=== PATIENT | male | born 1935 | race Caucasian/White ===

== ENCOUNTER 2017-08-19 11:17 | Emergency (ER) | payer MEDICARE, OTHER ==
--- NOTE | 2017-08-19 12:32 | RAD ---
PA AND LATERAL VIEWS CHEST: HISTORY: Dyspnea, cough, wheezing. FINDINGS: Comparison is made with the exam of 04/06/2017. There are changes of median sternotomy. The heart is enlarged. No confluent areas of consolidation, pneumothorax, marielle pleural edema, or pleural effusions are seen. There are degenerative changes of the spine. IMPRESSION: No acute process. POS: [facility]
[2017-08-19 12:40] LABS: #Basophils 0.1 thou/uL (0.0-0.2); #Eosinphils 0.8 thou/uL (0.0-0.7); #Lymphocytes 1.5 thou/uL (1.20-3.40); #Monocytes 0.6 thou/uL (0.11-0.59); #Neutrophils 7.2 thou/uL (1.40-6.50); %Basophils 1.1 % (0.0-1.0); %Lymphocytes 14.6 % (21.0-51.0); %Monocytes 5.8 % (0.0-10.0); %Neutrophils 70.5 % (42.0-75.0); Hemoglobin 13.5 g/dL (14.0-18.0); Mean Corpuscular HGB CONC 33.1 g/dL (32.0-36.0); Mean Corpuscular Hemoglobin 29.7 pg (27.0-31.0); Mean Corpuscular Volume 89.5 fl (80.0-94.0); Platelet Count 300 thou/uL (130-400); RBC Distribution Width 11.5 % (11.5-14.5); Red Blood Cell (RBC) Count 4.54 mill/uL (4.70-6.10); White Blood Cell (WBC) Count 10.2 thou/uL (4.8-10.8)
[2017-08-19 12:56] LABS: ALT (SGPT) 24 U/L (8-55); AST (SGOT) 21 U/L (5-34); Alkaline Phosphatase 55 U/L (40-150); Anion Gap 17 mmol/L (10-20); BUN (Urea Nitrogen) 15 mg/dL (8.4-25.7); Bilirubin, Total 0.3 mg/dL (0.2-1.2); CK (CPK) 236 U/L (30-200); Calc. Creatinine Clearance 0 mL/min (70-130); Calcium 9.6 mg/dL (7.8-10.44); Carbon Dioxide 26 mmol/L (23-31); Chloride 100 mmol/L (98-107); Estimated GFR-MDRD 83; Globulin 2.8 g/dL (2.4-3.5); Glucose 126 mg/dL (83-110); Potassium 4.1 mmol/L (3.5-5.1); Protein, Total 6.8 g/dL (5.8-8.1); Sodium 139 mmol/L (136-145)
[2017-08-19 12:57] LABS: CKMB 3.2 ng/mL (0-6.6); Troponin I Less than 0.010 ng/mL (< 0.028)
[2017-08-19] MEDS ORDERED: Water For Inject, Bacteriostat 30 ML ONE (13:04)
[2017-08-19] MEDS ORDERED: methylPREDNISolone Sod Succ/PF 125 MG/2 ML VIAL ONE (13:04)
== END 2017-08-19 13:15 | disposition home or self-care (01) ==
LOC: SCSER 11:17
DX: J20.9 Acute bronchitis, unspecified (principal); I25.10 Atherosclerotic heart disease of native coronary artery without angina pectoris; E11.9 Type 2 diabetes mellitus without complications; E78.5 Hyperlipidemia, unspecified; I10 Essential (primary) hypertension; Z79.82 Long term (current) use of aspirin; Z79.84 Long term (current) use of oral hypoglycemic drugs; Z79.899 Other long term (current) drug therapy; Z79.51 Long term (current) use of inhaled steroids
CPT/HCPCS: 71020; 80053; 82550; 82553; 83880; 84484; 85025; 93005; 94640; J2930; J7620

== ENCOUNTER 2017-09-22 12:07 | Outpatient (CLI) | payer MEDICARE, OTHER ==
[2017-09-22 14:17] LABS: Bilirubin Small (Negative); Blood, Urine Negative (Negative); Clarity CLEAR (Clear); Glucose, Urine (Dipstick) Negative (Negative); Leukocyte Negative (Negative); Nitrite Negative (Negative); Protein, Urine (Dipstick) Negative (Neg-Trace); Specific Gravity, Urine 1.018 (1.002-1.036); Urobilinogen 0.2 mg/dL (0.2-1.0)
[2017-09-22 14:19] LABS: #Eosinphils 0.1 thou/uL (0.0-0.7); #Lymphocytes 1.4 thou/uL (1.20-3.40); #Monocytes 0.7 thou/uL (0.11-0.59); #Neutrophils 6.6 thou/uL (1.40-6.50); %Basophils 0.5 % (0.0-1.0); %Eosinophils 1.6 % (0.0-10.0); %Lymphocytes 16.2 % (21.0-51.0); %Monocytes 7.4 % (0.0-10.0); %Neutrophils 74.3 % (42.0-75.0); Hemoglobin 13.9 g/dL (14.0-18.0); Mean Corpuscular Hemoglobin 29.9 pg (27.0-31.0); Mean Corpuscular Volume 90.8 fl (80.0-94.0); Mean Platelet Volume 7.1 fL (7.4-10.4); Platelet Count 337 thou/uL (130-400); RBC Distribution Width 12.5 % (11.5-14.5); Red Blood Cell (RBC) Count 4.65 mill/uL (4.70-6.10); White Blood Cell (WBC) Count 8.9 thou/uL (4.8-10.8)
[2017-09-22 14:20] LABS: Bacteria/HPF None Seen HPF (None Seen); Hyaline Casts/LPF 4-6 HYALINE CAST LPF (0-3 Hyaline); Squamous Epithelial 0-3 HPF (0-3); WBC/HPF 0-3 HPF (0-3)
--- NOTE | 2017-09-22 14:40 | RAD ---
TWO VIEWS OF THE CHEST: Comparison: 08-19-17 FINDINGS: Two views of the chest shows an enlarged but stable cardiomediastinal silhouette. The patient is stat us post CABG. There is no evidence of consolidation, mass, or pleural effusion. Degenerative changes are seen in the spine. IMPRESSION: No evidence of acute cardiopulmonary disease. POS: [facility]
[2017-09-22 14:54] LABS: Anion Gap 16 mmol/L (10-20); BUN (Urea Nitrogen) 20 mg/dL (8.4-25.7); Calc. Creatinine Clearance 0 mL/min (70-130); Calcium 9.1 mg/dL (7.8-10.44); Carbon Dioxide 27 mmol/L (23-31); Chloride 102 mmol/L (98-107); Estimated GFR-MDRD 65; Glucose 109 mg/dL (83-110); Sodium 141 mmol/L (136-145)
--- NOTE | 2017-11-21 21:51 | EKG ---
Test Reason : Blood Pressure : / mmHG Vent. Rate : 082 BPM Atrial Rate : 082 BPM P-R Int : 174 ms QRS Dur : 142 ms QT Int : 402 ms P-R-T Axes : 024 057 056 degrees QTc Int : 469 ms Normal sinus rhythm Right bundle branch block Abnormal ECG When compared with ECG of 19-AUG-2017 11:56, No significant change was found Confirmed by LOLA HEATH M.D. ([id number]) on 11/21/2017 9:51:01 PM Referred By: LOTTIE Confirmed By:LOLA HEATH M.D.
== END 2017-09-22 12:08 | disposition home or self-care (01) ==
LOC: LABBT 12:07
PROVIDERS: ATTEND Orthopaedic Surgery
DX: Z01.810 Encounter for preprocedural cardiovascular examination (principal); Z01.818 Encounter for other preprocedural examination; M12.811 Other specific arthropathies, not elsewhere classified, right shoulder
CPT/HCPCS: 71046; 80048; 81001; 85025; 85730; 87081; 93005; 93010

== ENCOUNTER 2017-09-22 12:30 | Inpatient (IN) | payer MEDICARE, OTHER ==
[2017-09-22 13:01] VITALS: BMI 34.2
[2017-09-29] MEDS ORDERED: Levofloxacin 500 mg/D5W 100 ml Premix Bag ONE (07:34)
[2017-09-29] MEDS ORDERED: Tranexamic Acid 1,000 MG/100 ML BAG ONE ×2 (07:35→11:30)
[2017-09-29] MEDS ORDERED: Vancomycin HCl 1.5 GM, Admixture Fee 1 EACH in Sodium Chloride 0.9% 250 ML 300 ML IVPB SCH ×2 (07:45→22:00)
[2017-09-29] MEDS ORDERED: Fentanyl 100 MCG/2 ML VIAL ONE (08:50)
[2017-09-29] MEDS ORDERED: Midazolam HCl 2 mg/2 ml Vial ONE (08:50)
[2017-09-29] MEDS ORDERED: Gentamicin 80 MG/2 ML VIAL ONE (08:53)
[2017-09-29] MEDS ORDERED: traMADol HCl 50 MG TAB PO PRN ×2 (09:02)
[2017-09-29] MEDS ORDERED: Promethazine HCl 25 MG/ML VIAL IM PRN ×2 (09:02→11:32)
[2017-09-29] MEDS ORDERED: Zolpidem Tartrate 5 MG TAB PO PRN (09:02)
[2017-09-29] MEDS ORDERED: HYDROcodone/Acetaminophen 10/325 mg Tablet PO PRN ×2 (09:02)
[2017-09-29] MEDS ORDERED: Ondansetron HCl/PF 4 MG/2 ML Vial IVP PRN ×2 (09:02→11:32)
[2017-09-29] MEDS ORDERED: Ketorolac Tromethamine 30 MG/ML VIAL IVP PRN (09:02)
[2017-09-29] MEDS ORDERED: Ropivacaine 0.2% 550 ML 550 ML NERVE BLCK SCH (09:02)
[2017-09-29] MEDS ORDERED: Fentanyl 100 MCG/2 ML VIAL IV PRN (09:03)
[2017-09-29] MEDS ORDERED: HYDROcodone/Acetaminophen 7.5/325 mg Tablet PO PRN ×2 (09:18)
[2017-09-29] MEDS ORDERED: Dextrose 50% Abboject 50 ML SYRINGE SLOW IVP PRN (09:22)
[2017-09-29] MEDS ORDERED: Dextrose 5% in Water 1,000 ML IV PRN (09:22)
[2017-09-29] MEDS ORDERED: Insulin Regular 300 UNITS/3 ML VIAL SC PRN (09:22)
[2017-09-29] MEDS ORDERED: SUGAMMADEX SODIUM 200 MG/2 ML VIAL ONE (11:19)
[2017-09-29] MEDS ORDERED: Promethazine HCl 25 MG/ML VIAL SLOW IVP PRN (11:32)
[2017-09-29] MEDS ORDERED: Ropivacaine 0.5% HCl/PF (150 MG/30 ML VIAL) ONE (11:43)
[2017-09-29] MEDS ORDERED: Ropivacaine 0.2% HCl/PF (40 MG/20 ML VIAL) ONE (11:43)
--- NOTE | 2017-09-29 11:49 | OP ---
DATE OF PROCEDURE: 09/29/2017 TITLE OF PROCEDURE: Right reverse total shoulder arthroplasty, biceps tenodesis. SURGEON: Norris Chen M.D. BODY PRESSER: Lennie. BLOOD LOSS: 200 mL. SPECIMEN: None. DRAINS: None. COMPLICATIONS: None. IMPLANTS USED: [employer] Tornier brand 3B Flex stem, 0 mm low offset tray and +6 mm poly and 36 mm glenosphere. NARRATIVE REPORT: After appropriate consent was obtained, the patient was placed in the beach chair position with a roll under the right shoulder. The right shoulder was prepped and draped in the usua l sterile fashion. I made a standard deltopectoral approach. Cephalic vein was taken medially and p reserved, branches were coagulated. The deltopectoral interval was opened. The biceps tendon was id entified. The tendon was frayed and in poor condition. I removed the biceps from the groove and tag ged it for later repair. It was eventually tagged to soft tissues using #5 Ethibond suture. The sub scapularis was taken down. Bone spurs were removed. Subscapularis was tacked for later repair. Usi ng the Tornier guide, a standard cut was performed. I then exposed the glenoid circumferentially. I drilled a central hole and reamed the glenoid. The glenoid baseplate was deployed without difficult y and screws were inserted in the usual technique. Glenosphere was docked without difficulty after i rrigation. Attention was turned to the humerus, which was opened with an acetabular and a shaft ream er to the appropriate size. Trial implant was placed and a trial reduction was performed. Trials we re removed and irrigation performed. I placed drill holes through the lesser tuberosity to repair th e subscapularis. Permanent implant was impacted into place. The shoulder was reduced and confirmed to have good stability throughout a range of motion. Subscapularis was tacked down with a cottony Da cron suture. Additional irrigation was performed. The deltopectoral interval was repaired with #2-0 Vicryl and subcutaneous tissue closed with 2-0 Vicryl. The skin was closed with yevgeniy and a steri le dressing was applied. IMPLANTS USED: Tornier 12 mm stem with a 9 mm polyethylene bushing and a standard baseplate and 36 g lenosphere.
[2017-09-29] MEDS ORDERED: ePHEDrine/0.9% NaCl/PF SYRINGE 50 mg/10 ml ONE (12:10)
[2017-09-29] MEDS ORDERED: Lidocaine 1% PF 5 ML VIAL ONE (12:10)
[2017-09-29] MEDS ORDERED: PROPOFOL 200 MG/20 ML VIAL ONE (12:10)
[2017-09-29] MEDS ORDERED: PHENYLEPHRINE-NS 100 MCG/ML 10 ML SYRINGE ONE (12:10)
[2017-09-29] MEDS ORDERED: Glycopyrrolate 0.2 MG/ML 5 ML SYRINGE ONE (12:10)
[2017-09-29] MEDS ORDERED: Hydrochlorothiazide 25 MG TAB PO SCH (17:30)
[2017-09-29] MEDS: Sodium Chloride 0.9% 1,000 ML IV SCH (17:42)
[2017-09-29] MEDS: Lisinopril 20 MG TAB PO SCH (20:17)
[2017-09-29] MEDS: Fish Oil 1,000 MG CAP PO SCH (20:18)
[2017-09-29] MEDS ORDERED: Aspirin 81 mg Enteric Coated Tablet PO SCH (21:00)
[2017-09-30] MEDS ORDERED: metFORMIN 500 MG TAB PO SCH (08:00)
[2017-09-30] MEDS: Fish Oil 1,000 MG CAP PO SCH (08:59)
[2017-09-30] MEDS ORDERED: Hydrochlorothiazide 25 MG TAB PO SCH (09:00)
[2017-09-30] MEDS ORDERED: diphenhydrAMINE 25 MG CAP PO SCH (09:00)
[2017-09-30] MEDS: Lisinopril 20 MG TAB PO SCH (09:01)
[2017-09-30 11:47] VITALS: BP 149/78; TEMP 98.7
[2017-09-30] MEDS ORDERED: Fentanyl 100 MCG/2 ML VIAL SLOW IVP PRN (13:35)
[2017-09-30] MEDS: Sodium Chloride 0.9% 1,000 ML IV SCH (14:14)
[2017-09-30] MEDS ORDERED: Folic Acid 1 MG TAB PO SCH (21:00)
== END 2017-09-30 16:05 | disposition home or self-care (01) | DRG 483 ==
LOC: SURG A 09-29 07:14
PROVIDERS: ADMIT Orthopaedic Surgery; ATTEND Orthopaedic Surgery
PROC: 0RRJ00Z Replacement of Right Shoulder Joint with Reverse Ball and Socket Synthetic Substitute, Open Approach (ICD-10-PCS; principal; 2017-09-29)
PROC: 3E0T3BZ Introduction of Anesthetic Agent into Peripheral Nerves and Plexi, Percutaneous Approach (ICD-10-PCS; 2017-09-29)
DX: M19.011 Primary osteoarthritis, right shoulder (principal); E11.9 Type 2 diabetes mellitus without complications; Z95.1 Presence of aortocoronary bypass graft; M75.101 Unspecified rotator cuff tear or rupture of right shoulder, not specified as traumatic; M12.811 Other specific arthropathies, not elsewhere classified, right shoulder; E78.00 Pure hypercholesterolemia, unspecified; I10 Essential (primary) hypertension
CPT/HCPCS: 36416; A4306; G8978-GP-CL; G8979-GP-CJ; G8987-GO-CJ; G8988-GO-CI; J1580; J1956; J2001; J2250; J2704; J2795; J3010; J3370; J7050

== ENCOUNTER 2018-08-09 08:25 | Outpatient (CLI) | payer MEDICARE, OTHER ==
--- NOTE | 2018-08-09 11:00 | CT ---
EXAM: ABDOMEN AND PELVIC CT SCAN WITH IV CONTRAST: History: 82-year-old male with history of weight loss, 60 lbs over one year. FINDINGS: Minimal pleural and parenchymal changes are noted in both lung bases which have more of a chronic sergey earance. There appears to be a small posterior fat containing left diaphragmatic hernia. The liver, gallbladder, pancreas, spleen, adrenal glands are unremarkable. Multiple bilateral renal c ortical and peripelvic cysts. Tiny nonobstructing right renal calculus. No evidence for acute obst ruction. Bilateral fat containing inguinal hernias. No CT evidence for acute appendicitis. IMPRESSION: Bilateral renal cortical and parapelvic cysts. Very tiny nonobstructing right renal calculus. Minimal pleural and parenchymal changes in the lung bases as well as a very small stable posterior left fat containing diaphragmatic hernia. Multilevel variable severity lumbar stenosis, stable bilateral fat c ontaining inguinal hernias. POS: [facility]
== END 2018-08-09 08:26 | disposition home or self-care (01) ==
LOC: SCSCT 08:25
PROVIDERS: ATTEND Internal Medicine
DX: K26.9 Duodenal ulcer, unspecified as acute or chronic, without hemorrhage or perforation (principal); R63.4 Abnormal weight loss; N28.1 Cyst of kidney, acquired; N20.0 Calculus of kidney; M48.061 Spinal stenosis, lumbar region without neurogenic claudication; K40.90 Unilateral inguinal hernia, without obstruction or gangrene, not specified as recurrent; K44.9 Diaphragmatic hernia without obstruction or gangrene
CPT/HCPCS: 74177; 82565

== ENCOUNTER 2021-05-09 15:07 | Observation (INO) | payer MEDICARE ==
[2021-05-09 16:50] LABS: #Eosinphils 0.1 thou/uL (0.0-0.7); #Lymphocytes 1.2 thou/uL (1.20-3.40); #Monocytes 0.5 thou/uL (0.11-0.59); #Neutrophils 5.5 thou/uL (1.40-6.50); %Basophils 0.2 % (0.0-1.0); %Lymphocytes 16.8 % (21.0-51.0); %Monocytes 6.7 % (0.0-10.0); %Neutrophils 74.4 % (42.0-75.0); Mean Corpuscular HGB CONC 33.8 g/dL (32.0-36.0); Mean Corpuscular Hemoglobin 29.9 pg (27.0-31.0); Mean Corpuscular Volume 88.5 fL (78.0-98.0); Mean Platelet Volume 7.5 fL (7.4-10.4); Platelet Count 230 thou/uL (130-400); RBC Distribution Width 12.2 % (11.5-14.5); Red Blood Cell (RBC) Count 4.02 mill/uL (4.70-6.10); White Blood Cell (WBC) Count 7.3 thou/uL (4.8-10.8)
[2021-05-09] MEDS ORDERED: Nitroglycerin 2% Ointment 1 INCH/1 GM Packet ONE (17:09)
[2021-05-09 17:14] LABS: ALT (SGPT) 8 U/L (8-55); AST (SGOT) 13 U/L (5-34); Albumin 3.6 g/dL (3.4-4.8); Alkaline Phosphatase 65 U/L (40-110); Anion Gap 10 mmol/L (10-20); BUN (Urea Nitrogen) 18 mg/dL (8.4-25.7); Bilirubin, Total 0.3 mg/dL (0.2-1.2); Calc. Creatinine Clearance 0 mL/min (70-130); Calcium 8.7 mg/dL (7.8-10.44); Carbon Dioxide 26 mmol/L (23-31); Chloride 106 mmol/L (98-107); Globulin 2.2 g/dL (2.4-3.5); Glucose 103 mg/dL (83-110); Lipase 39 U/L (8-78); Potassium 4.3 mmol/L (3.5-5.1); Protein, Total 5.8 g/dL (5.8-8.1); Sodium 138 mmol/L (136-145)
[2021-05-09 21:15] LABS: Troponin I Less than 0.010 ng/mL (< 0.028)
[2021-05-09 22:30] VITALS: BMI 25.9
[2021-05-09] MEDS ORDERED: Acetaminophen 325 MG TAB PO PRN (22:30)
[2021-05-09] MEDS ORDERED: Nitroglycerin 0.4 MG TAB (25 Tab Bottle) SL PRN (22:33)
[2021-05-09] MEDS ORDERED: Morphine 2 MG/ML VIAL SLOW IVP PRN (22:33)
[2021-05-09] MEDS ORDERED: Dextrose 50% Abboject 50 ML SYRINGE SLOW IVP PRN (22:42)
[2021-05-09] MEDS ORDERED: Dextrose 5% in Water 1,000 ML IV PRN (22:42)
[2021-05-10 00:20] LABS: Troponin I Less than 0.010 ng/mL (< 0.028)
[2021-05-10 05:25] LABS: #Basophils 0.1 thou/uL (0.0-0.2); #Eosinphils 0.2 thou/uL (0.0-0.7); #Lymphocytes 1.4 thou/uL (1.20-3.40); #Monocytes 0.6 thou/uL (0.11-0.59); #Neutrophils 4.6 thou/uL (1.40-6.50); %Basophils 0.8 % (0.0-1.0); %Eosinophils 2.6 % (0.0-10.0); %Lymphocytes 20.2 % (21.0-51.0); %Monocytes 8.4 % (0.0-10.0); Hemoglobin 11.6 g/dL (14.0-18.0); Mean Corpuscular Hemoglobin 29.1 pg (27.0-31.0); Mean Platelet Volume 7.7 fL (7.4-10.4); Platelet Count 244 thou/uL (130-400); RBC Distribution Width 12.3 % (11.5-14.5); Red Blood Cell (RBC) Count 3.99 mill/uL (4.70-6.10); White Blood Cell (WBC) Count 6.8 thou/uL (4.8-10.8)
[2021-05-10 05:28] LABS: Hemoglobin A1c 5.1 % (4.0-6.0)
[2021-05-10 05:53] LABS: Anion Gap 11 mmol/L (10-20); BUN (Urea Nitrogen) 14 mg/dL (8.4-25.7); Calc. Creatinine Clearance 77 mL/min (70-130); Carbon Dioxide 27 mmol/L (23-31); Chloride 106 mmol/L (98-107); Potassium 3.7 mmol/L (3.5-5.1); Sodium 140 mmol/L (136-145)
[2021-05-10 05:54] LABS: Calcium 8.5 mg/dL (7.8-10.44); Cardiac Risk 3.2 (Less than 4.5); Cholesterol 120 mg/dl (< 200 Desired); Glucose 105 mg/dL (83-110); HDL Cholesterol 37 mg/dL (>60 Neg Risk); LDL Cholesterol, Calculated 61 mg/dL; Triglycerides 109 mg/dL (Less than 150)
[2021-05-10 07:30] VITALS: TEMP 97.5
[2021-05-10] MEDS ORDERED: Lisinopril 20 MG TAB PO SCH (09:00)
[2021-05-10] MEDS ORDERED: Aspirin Chewable 81 MG TAB PO SCH (09:00)
[2021-05-10 13:25] VITALS: BP 196/81
[2021-05-10] MEDS ORDERED: hydrALAZINE 25 MG TAB PO PRN (15:04)
[2021-05-10] MEDS ORDERED: ADENOSINE 60 MG/20 ML VIAL ONE (15:05)
[2021-05-10] MEDS ORDERED: Hydrochlorothiazide 25 MG TAB PO SCH (15:06)
[2021-05-10] MEDS ORDERED: NIFEdipine XL 30 MG TAB PO STA (15:06)
[2021-05-10 18:15] LABS: SARS-CoV-2 PCR by NAA Not Detected (NotDetected)
[2021-05-10] MEDS ORDERED: Atorvastatin Calcium 20 MG TAB PO SCH (21:00)
[2021-05-10] MEDS ORDERED: Verapamil 120 MG TAB PO SCH (21:00)
== END 2021-05-10 18:20 | disposition home or self-care (01) ==
LOC: ERS 15:07 → 2NO 20:20
PROVIDERS: ADMIT Internal Medicine; ATTEND Internal Medicine
DX: R07.89 Other chest pain (principal); I25.10 Atherosclerotic heart disease of native coronary artery without angina pectoris; I10 Essential (primary) hypertension; E78.5 Hyperlipidemia, unspecified; E11.9 Type 2 diabetes mellitus without complications; Z20.822 Contact with and (suspected) exposure to COVID-19; Z66 Do not resuscitate; Z88.0 Allergy status to penicillin; Z88.1 Allergy status to other antibiotic agents; Z88.2 Allergy status to sulfonamides; Z88.8 Allergy status to other drugs, medicaments and biological substances; Z79.84 Long term (current) use of oral hypoglycemic drugs; Z79.82 Long term (current) use of aspirin; Z79.899 Other long term (current) drug therapy; Z95.1 Presence of aortocoronary bypass graft
CPT/HCPCS: 71045; 78452; 80048; 80053; 80061; 82962; 83036; 83690; 84484 ×2; 85025 ×2; 93005; 93017; 93306; 94760; 99285; A9500; G0378 ×3; U0003; U0005; 36415; 36416; J0153

== ENCOUNTER 2021-05-12 17:48 | Inpatient (IN) | payer MEDICARE ==
[~2021-05-12 17:48] MED LIST: Iopamidol-370 76% 500 ML 1 ML ONE
[2021-05-12] MEDS ORDERED: Pantoprazole 40 MG VIAL ONE (18:13)
[2021-05-12 18:46] LABS: #Lymphocytes 1.3 thou/uL (1.20-3.40); #Monocytes 1.1 thou/uL (0.11-0.59); #Neutrophils 14.2 thou/uL (1.40-6.50); %Basophils 0.1 % (0.0-1.0); %Eosinophils 0.3 % (0.0-10.0); %Lymphocytes 7.9 % (21.0-51.0); %Monocytes 6.6 % (0.0-10.0); %Neutrophils 85.1 % (42.0-75.0); Mean Corpuscular HGB CONC 32.2 g/dL (32.0-36.0); Mean Corpuscular Hemoglobin 28.8 pg (27.0-31.0); Mean Corpuscular Volume 89.2 fL (78.0-98.0); Platelet Count 302 thou/uL (130-400); RBC Distribution Width 12.5 % (11.5-14.5); Red Blood Cell (RBC) Count 3.83 mill/uL (4.70-6.10); White Blood Cell (WBC) Count 16.7 thou/uL (4.8-10.8)
[2021-05-12 18:59] LABS: PTT 24.9 sec (22.9-36.1); Prothrombin Time 13.6 sec (12.0-14.7)
[2021-05-12] MEDS ORDERED: Morphine 4 MG/ML VIAL ONE (19:32)
[2021-05-12 19:58] LABS: ALT (SGPT) 8 U/L (8-55); AST (SGOT) 10 U/L (5-34); Albumin 3.4 g/dL (3.4-4.8); Alkaline Phosphatase 63 U/L (40-110); Anion Gap 19 mmol/L (10-20); BUN (Urea Nitrogen) 44 mg/dL (8.4-25.7); Bilirubin, Total 0.3 mg/dL (0.2-1.2); Calc. Creatinine Clearance 0 mL/min (70-130); Calcium 8.8 mg/dL (7.8-10.44); Carbon Dioxide 18 mmol/L (23-31); Chloride 105 mmol/L (98-107); Globulin 2.6 g/dL (2.4-3.5); Glucose 142 mg/dL (83-110); Lipase 49 U/L (8-78); Magnesium 1.8 mg/dL (1.6-2.6); Sodium 138 mmol/L (136-145)
[2021-05-12] MEDS ORDERED: Pantoprazole 80 MG, Admixture Fee 1 EACH in Sodium Chloride 0.9% 100 ML IVPB SCH (20:30)
[2021-05-12 22:52] VITALS: BMI 30.3
[2021-05-13] MEDS ORDERED: Acetaminophen 650 MG Suppository PR PRN (00:48)
[2021-05-13] MEDS ORDERED: Ondansetron PF 4 MG/2 ML Vial IVP PRN (00:48)
[2021-05-13] MEDS ORDERED: hydrALAZINE 20 MG/ML VIAL SLOW IVP PRN ×2 (00:51→01:11)
[2021-05-13] MEDS ORDERED: HumaLOG 300 UNITS/3 ML VIAL SC PRN ×2 (01:12)
[2021-05-13] MEDS ORDERED: Dextrose 5% in Water 1,000 ML IV PRN (01:12)
[2021-05-13] MEDS ORDERED: Dextrose 50% Abboject 50 ML SYRINGE SLOW IVP PRN (01:12)
[2021-05-13] MEDS ORDERED: metroNIDAZOLE 500 MG in Premix Bag 1 BAG IVPB SCH (01:15)
[2021-05-13] MEDS ORDERED: Meropenem 1 GM in Sodium Chloride 0.9% 100 ML IVPB SCH (01:15)
[2021-05-13] MEDS: Sodium Chloride 0.9% 1,000 ML IV SCH ×2 (01:27→20:07)
[2021-05-13 01:55] LABS: Hemoglobin 11.3 g/dL (14.0-18.0)
[2021-05-13] MEDS ORDERED: MEROPENEM 1 GM/50 ML 1 GM in Premix Bag 1 BAG IVPB SCH (02:15)
[2021-05-13 06:10] LABS: #Lymphocytes 1.4 thou/uL (1.20-3.40); #Neutrophils 10.8 thou/uL (1.40-6.50); %Basophils 0.1 % (0.0-1.0); %Eosinophils 0.2 % (0.0-10.0); %Lymphocytes 10.5 % (21.0-51.0); %Monocytes 7.7 % (0.0-10.0); %Neutrophils 81.6 % (42.0-75.0); Hemoglobin 9.5 g/dL (14.0-18.0); Mean Corpuscular HGB CONC 32.2 g/dL (32.0-36.0); Mean Corpuscular Hemoglobin 28.8 pg (27.0-31.0); Mean Corpuscular Volume 89.5 fL (78.0-98.0); Mean Platelet Volume 8.1 fL (7.4-10.4); Platelet Count 260 thou/uL (130-400); RBC Distribution Width 12.7 % (11.5-14.5); Red Blood Cell (RBC) Count 3.28 mill/uL (4.70-6.10); White Blood Cell (WBC) Count 13.2 thou/uL (4.8-10.8)
[2021-05-13 06:33] LABS: Anion Gap 13 mmol/L (10-20); BUN (Urea Nitrogen) 48 mg/dL (8.4-25.7); Calc. Creatinine Clearance 73 mL/min (70-130); Calcium 8.3 mg/dL (7.8-10.44); Carbon Dioxide 24 mmol/L (23-31); Chloride 108 mmol/L (98-107); Glucose 115 mg/dL (83-110); Potassium 4.5 mmol/L (3.5-5.1); Sodium 140 mmol/L (136-145)
[2021-05-13] MEDS: MEROPENEM 1 GM/50 ML 1 GM in Premix Bag 1 BAG IVPB SCH ×2 (09:47→17:29)
[2021-05-13] MEDS: Pantoprazole 80 MG in Sodium Chloride 0.9% 100 ML IVPB SCH ×2 (10:45→20:07)
[2021-05-13 10:47] LABS: Hemoglobin 9.9 g/dL (14.0-18.0)
[2021-05-13 10:59] LABS: Prothrombin Time 13.5 sec (12.0-14.7)
[2021-05-13 11:00] LABS: PTT 28.3 sec (22.9-36.1)
[2021-05-14 00:48] LABS: Hemoglobin 9.3 g/dL (14.0-18.0)
[2021-05-14] MEDS: MEROPENEM 1 GM/50 ML 1 GM in Premix Bag 1 BAG IVPB SCH ×3 (01:24→17:31)
[2021-05-14 07:36] LABS: #Eosinphils 0.1 thou/uL (0.0-0.7); #Lymphocytes 1.6 thou/uL (1.20-3.40); #Monocytes 1.2 thou/uL (0.11-0.59); #Neutrophils 10.3 thou/uL (1.40-6.50); %Basophils 0.2 % (0.0-1.0); %Eosinophils 0.5 % (0.0-10.0); %Lymphocytes 11.9 % (21.0-51.0); %Neutrophils 78.4 % (42.0-75.0); Hemoglobin 8.1 g/dL (14.0-18.0); Mean Corpuscular HGB CONC 32.5 g/dL (32.0-36.0); Mean Corpuscular Hemoglobin 29.4 pg (27.0-31.0); Mean Corpuscular Volume 90.6 fL (78.0-98.0); Mean Platelet Volume 8.6 fL (7.4-10.4); Platelet Count 214 thou/uL (130-400); RBC Distribution Width 12.9 % (11.5-14.5); Red Blood Cell (RBC) Count 2.74 mill/uL (4.70-6.10); White Blood Cell (WBC) Count 13.2 thou/uL (4.8-10.8)
[2021-05-14 07:37] LABS: Anion Gap 9 mmol/L (10-20); BUN (Urea Nitrogen) 43 mg/dL (8.4-25.7); Calc. Creatinine Clearance 83 mL/min (70-130); Calcium 8.1 mg/dL (7.8-10.44); Carbon Dioxide 23 mmol/L (23-31); Chloride 112 mmol/L (98-107); Glucose 97 mg/dL (83-110); Potassium 4.1 mmol/L (3.5-5.1); Sodium 140 mmol/L (136-145)
[2021-05-14 09:14] LABS: Band 5 % (5-11); Lymphocytes 13 % (21-51); MDiff Complete? YES; Monocytes 5 % (0-10); Neutrophil 77 % (42-75); Platelet Morphology Comment Appears Adequate; RBC Morphology Normal
[2021-05-14] MEDS ORDERED: Morphine 2 MG/ML VIAL SLOW IVP PRN (10:59)
[2021-05-14] MEDS ORDERED: EPINEPHrine 1 MG/10 ML Abboject SYRINGE ONE (13:37)
[2021-05-14] MEDS ORDERED: Lidocaine 1% PF 5 ML VIAL ONE (13:37)
[2021-05-14] MEDS ORDERED: PROPOFOL 200 MG/20 ML VIAL ONE (13:37)
[2021-05-14] MEDS ORDERED: Fentanyl 100 MCG/2 ML VIAL ONE (14:41)
[2021-05-14] MEDS ORDERED: Ondansetron HCl/PF 4 MG/2 ML Vial IVP PRN (14:51)
[2021-05-14] MEDS: Sodium Chloride 0.9% 1,000 ML IV SCH (17:30)
[2021-05-14] MEDS: Pantoprazole 80 MG in Sodium Chloride 0.9% 100 ML IVPB SCH (17:30)
[2021-05-14 17:35] LABS: Platelet Count 229 thou/uL (130-400)
[2021-05-15] MEDS: MEROPENEM 1 GM/50 ML 1 GM in Premix Bag 1 BAG IVPB SCH ×4 (02:36→19:53)
[2021-05-15 05:24] LABS: Anion Gap 15 mmol/L (10-20); BUN (Urea Nitrogen) 33 mg/dL (8.4-25.7); Calc. Creatinine Clearance 65 mL/min (70-130); Calcium 8.7 mg/dL (7.8-10.44); Carbon Dioxide 17 mmol/L (23-31); Chloride 118 mmol/L (98-107); Glucose 98 mg/dL (83-110); Sodium 145 mmol/L (136-145)
[2021-05-15] MEDS: Pantoprazole 80 MG in Sodium Chloride 0.9% 100 ML IVPB SCH ×2 (07:30→17:54)
[2021-05-15 09:19] LABS: #Eosinphils 0.2 thou/uL (0.0-0.7); #Lymphocytes 1.5 thou/uL (1.20-3.40); #Monocytes 0.6 thou/uL (0.11-0.59); #Neutrophils 9.6 thou/uL (1.40-6.50); %Basophils 0.2 % (0.0-1.0); %Eosinophils 1.9 % (0.0-10.0); %Lymphocytes 12.7 % (21.0-51.0); %Monocytes 4.8 % (0.0-10.0); %Neutrophils 80.5 % (42.0-75.0); Hemoglobin 11.9 g/dL (14.0-18.0); Mean Corpuscular HGB CONC 33.2 g/dL (32.0-36.0); Mean Corpuscular Hemoglobin 29.6 pg (27.0-31.0); Mean Corpuscular Volume 89.1 fL (78.0-98.0); Platelet Count 219 thou/uL (130-400); RBC Distribution Width 13.4 % (11.5-14.5); Red Blood Cell (RBC) Count 4.02 mill/uL (4.70-6.10); White Blood Cell (WBC) Count 11.9 thou/uL (4.8-10.8)
[2021-05-15] MEDS: Sodium Chloride 0.9% 1,000 ML IV SCH (13:21)
[2021-05-15 16:23] LABS: Hemoglobin 10.1 g/dL (14.0-18.0); Platelet Count 231 thou/uL (130-400)
[2021-05-15 21:45] LABS: Troponin I 0.305 ng/mL (< 0.028)
[2021-05-16 00:18] LABS: Hemoglobin 9.7 g/dL (14.0-18.0); Platelet Count 219 thou/uL (130-400)
[2021-05-16 03:31] LABS: Troponin I 0.579 ng/mL (< 0.028)
[2021-05-16 05:05] LABS: #Eosinphils 0.2 thou/uL (0.0-0.7); #Lymphocytes 1.4 thou/uL (1.20-3.40); #Monocytes 0.5 thou/uL (0.11-0.59); #Neutrophils 5.5 thou/uL (1.40-6.50); %Basophils 0.6 % (0.0-1.0); %Eosinophils 2.6 % (0.0-10.0); %Lymphocytes 18.6 % (21.0-51.0); %Monocytes 6.9 % (0.0-10.0); %Neutrophils 71.3 % (42.0-75.0); Hemoglobin 9.5 g/dL (14.0-18.0); Mean Corpuscular HGB CONC 33.2 g/dL (32.0-36.0); Mean Corpuscular Hemoglobin 29.5 pg (27.0-31.0); Mean Corpuscular Volume 88.6 fL (78.0-98.0); Mean Platelet Volume 7.7 fL (7.4-10.4); Platelet Count 228 thou/uL (130-400); RBC Distribution Width 13.1 % (11.5-14.5); Red Blood Cell (RBC) Count 3.22 mill/uL (4.70-6.10); White Blood Cell (WBC) Count 7.7 thou/uL (4.8-10.8)
[2021-05-16 05:25] LABS: ALT (SGPT) 7 U/L (8-55); AST (SGOT) 13 U/L (5-34); Albumin 2.6 g/dL (3.4-4.8); Alkaline Phosphatase 53 U/L (40-110); Anion Gap 9 mmol/L (10-20); BUN (Urea Nitrogen) 20 mg/dL (8.4-25.7); Bilirubin, Total 0.3 mg/dL (0.2-1.2); Calc. Creatinine Clearance 89 mL/min (70-130); Calcium 7.8 mg/dL (7.8-10.44); Carbon Dioxide 24 mmol/L (23-31); Chloride 112 mmol/L (98-107); Globulin 1.7 g/dL (2.4-3.5); Glucose 104 mg/dL (83-110); Potassium 3.6 mmol/L (3.5-5.1); Protein, Total 4.3 g/dL (5.8-8.1); Sodium 141 mmol/L (136-145)
[2021-05-16] MEDS: Pantoprazole 80 MG in Sodium Chloride 0.9% 100 ML IVPB SCH ×2 (07:59→19:33)
[2021-05-16] MEDS: Sodium Chloride 0.9% 1,000 ML IV SCH (08:00)
[2021-05-16 08:20] LABS: Hemoglobin 9.3 g/dL (14.0-18.0); Platelet Count 243 thou/uL (130-400)
[2021-05-16] MEDS: MEROPENEM 1 GM/50 ML 1 GM in Premix Bag 1 BAG IVPB SCH (09:36)
[2021-05-16] MEDS ORDERED: Melatonin 3 MG TAB PO PRN (23:58)
[2021-05-16] MEDS ORDERED: Loratadine 10 MG TAB PO PRN (23:58)
[2021-05-17] MEDS: Sodium Chloride 0.9% 1,000 ML IV SCH (05:06)
[2021-05-17 05:38] LABS: #Eosinphils 0.3 thou/uL (0.0-0.7); #Monocytes 0.7 thou/uL (0.11-0.59); #Neutrophils 4.8 thou/uL (1.40-6.50); %Basophils 0.2 % (0.0-1.0); %Eosinophils 4.1 % (0.0-10.0); %Lymphocytes 14.9 % (21.0-51.0); %Monocytes 10.5 % (0.0-10.0); %Neutrophils 70.4 % (42.0-75.0); Hemoglobin 9.4 g/dL (14.0-18.0); Mean Corpuscular HGB CONC 32.8 g/dL (32.0-36.0); Mean Corpuscular Hemoglobin 29.5 pg (27.0-31.0); Mean Corpuscular Volume 89.9 fL (78.0-98.0); Mean Platelet Volume 7.9 fL (7.4-10.4); Platelet Count 224 thou/uL (130-400); RBC Distribution Width 13.1 % (11.5-14.5); White Blood Cell (WBC) Count 6.8 thou/uL (4.8-10.8)
[2021-05-17 05:52] LABS: ALT (SGPT) 13 U/L (8-55); AST (SGOT) 17 U/L (5-34); Albumin 2.8 g/dL (3.4-4.8); Alkaline Phosphatase 60 U/L (40-110); Anion Gap 10 mmol/L (10-20); BUN (Urea Nitrogen) 11 mg/dL (8.4-25.7); Bilirubin, Total 0.3 mg/dL (0.2-1.2); Calc. Creatinine Clearance 87 mL/min (70-130); Carbon Dioxide 24 mmol/L (23-31); Chloride 109 mmol/L (98-107); Globulin 1.9 g/dL (2.4-3.5); Glucose 102 mg/dL (83-110); Potassium 3.7 mmol/L (3.5-5.1); Protein, Total 4.7 g/dL (5.8-8.1); Sodium 139 mmol/L (136-145)
[2021-05-17] MEDS: Atorvastatin Calcium 10 MG TAB PO SCH (21:58)
[2021-05-17] MEDS: Pantoprazole 40 MG VIAL IVP SCH (21:59)
[2021-05-17] MEDS: Lisinopril 10 MG TAB PO SCH (22:00)
[2021-05-18 05:00] LABS: #Eosinphils 0.2 thou/uL (0.0-0.7); #Monocytes 0.7 thou/uL (0.11-0.59); #Neutrophils 3.4 thou/uL (1.40-6.50); %Basophils 0.4 % (0.0-1.0); %Eosinophils 3.5 % (0.0-10.0); %Lymphocytes 19.3 % (21.0-51.0); %Monocytes 13.6 % (0.0-10.0); %Neutrophils 63.2 % (42.0-75.0); Hemoglobin 8.5 g/dL (14.0-18.0); Mean Corpuscular HGB CONC 32.9 g/dL (32.0-36.0); Mean Corpuscular Hemoglobin 29.6 pg (27.0-31.0); Mean Corpuscular Volume 89.9 fL (78.0-98.0); Mean Platelet Volume 7.5 fL (7.4-10.4); Platelet Count 212 thou/uL (130-400); RBC Distribution Width 12.9 % (11.5-14.5); Red Blood Cell (RBC) Count 2.87 mill/uL (4.70-6.10); White Blood Cell (WBC) Count 5.4 thou/uL (4.8-10.8)
[2021-05-18 05:16] LABS: ALT (SGPT) 12 U/L (8-55); AST (SGOT) 11 U/L (5-34); Albumin 2.6 g/dL (3.4-4.8); Alkaline Phosphatase 55 U/L (40-110); Anion Gap 7 mmol/L (10-20); BUN (Urea Nitrogen) 13 mg/dL (8.4-25.7); Bilirubin, Total 0.2 mg/dL (0.2-1.2); Calc. Creatinine Clearance 86 mL/min (70-130); Calcium 7.7 mg/dL (7.8-10.44); Carbon Dioxide 26 mmol/L (23-31); Chloride 108 mmol/L (98-107); Globulin 1.8 g/dL (2.4-3.5); Glucose 101 mg/dL (83-110); Potassium 3.4 mmol/L (3.5-5.1); Protein, Total 4.4 g/dL (5.8-8.1); Sodium 138 mmol/L (136-145)
[2021-05-18] MEDS: Pantoprazole 40 MG VIAL IVP SCH ×2 (08:54→21:18)
[2021-05-18] MEDS: Lisinopril 10 MG TAB PO SCH (21:17)
[2021-05-18] MEDS: Atorvastatin Calcium 10 MG TAB PO SCH (21:18)
[2021-05-19 06:12] LABS: #Eosinphils 0.2 thou/uL (0.0-0.7); #Lymphocytes 0.8 thou/uL (1.20-3.40); #Monocytes 0.8 thou/uL (0.11-0.59); #Neutrophils 3.5 thou/uL (1.40-6.50); %Basophils 0.9 % (0.0-1.0); %Eosinophils 4.1 % (0.0-10.0); %Lymphocytes 15.5 % (21.0-51.0); %Monocytes 14.2 % (0.0-10.0); %Neutrophils 65.3 % (42.0-75.0); Mean Corpuscular HGB CONC 31.4 g/dL (32.0-36.0); Mean Corpuscular Volume 89.3 fL (78.0-98.0); Platelet Count 245 thou/uL (130-400); RBC Distribution Width 12.6 % (11.5-14.5); Red Blood Cell (RBC) Count 3.21 mill/uL (4.70-6.10); White Blood Cell (WBC) Count 5.4 thou/uL (4.8-10.8)
[2021-05-19 06:33] LABS: ALT (SGPT) 10 U/L (8-55); AST (SGOT) 11 U/L (5-34); Albumin 2.8 g/dL (3.4-4.8); Alkaline Phosphatase 58 U/L (40-110); Anion Gap 11 mmol/L (10-20); BUN (Urea Nitrogen) 12 mg/dL (8.4-25.7); Bilirubin, Total 0.3 mg/dL (0.2-1.2); Calc. Creatinine Clearance 85 mL/min (70-130); Calcium 7.6 mg/dL (7.8-10.44); Carbon Dioxide 25 mmol/L (23-31); Chloride 108 mmol/L (98-107); Globulin 1.9 g/dL (2.4-3.5); Glucose 97 mg/dL (83-110); Potassium 3.7 mmol/L (3.5-5.1); Protein, Total 4.7 g/dL (5.8-8.1); Sodium 140 mmol/L (136-145)
[2021-05-19] MEDS: Pantoprazole 40 MG VIAL IVP SCH (09:12)
[2021-05-19 20:23] VITALS: BP 150/68; TEMP 97.8
== END 2021-05-19 20:25 | DRG 377 ==
LOC: ERS 17:48 → T4-A 20:50 → 2SE 05-13 03:57
PROVIDERS: ADMIT Internal Medicine; ATTEND Internal Medicine
PROC: 0W3P8ZZ Control Bleeding in Gastrointestinal Tract, Via Natural or Artificial Opening Endoscopic (ICD-10-PCS; principal; 2021-05-14)
PROC: 30233N1 Transfusion of Nonautologous Red Blood Cells into Peripheral Vein, Percutaneous Approach (ICD-10-PCS; 2021-05-14)
DX: K26.4 Chronic or unspecified duodenal ulcer with hemorrhage (principal); I21.4 Non-ST elevation (NSTEMI) myocardial infarction; D62 Acute posthemorrhagic anemia; E44.1 Mild protein-calorie malnutrition; K31.5 Obstruction of duodenum; K55.1 Chronic vascular disorders of intestine; I25.10 Atherosclerotic heart disease of native coronary artery without angina pectoris; I77.89 Other specified disorders of arteries and arterioles; D72.829 Elevated white blood cell count, unspecified; Z66 Do not resuscitate; I10 Essential (primary) hypertension; I70.8 Atherosclerosis of other arteries; E11.51 Type 2 diabetes mellitus with diabetic peripheral angiopathy without gangrene; K29.51 Unspecified chronic gastritis with bleeding; I45.10 Unspecified right bundle-branch block; Z96.661 Presence of right artificial ankle joint; Z88.0 Allergy status to penicillin; Z88.1 Allergy status to other antibiotic agents; Z95.1 Presence of aortocoronary bypass graft; Z88.2 Allergy status to sulfonamides; Z88.8 Allergy status to other drugs, medicaments and biological substances; Z68.30 Body mass index [BMI] 30.0-30.9, adult; Z90.49 Acquired absence of other specified parts of digestive tract; Z79.84 Long term (current) use of oral hypoglycemic drugs; Z79.82 Long term (current) use of aspirin; Z79.899 Other long term (current) drug therapy
CPT/HCPCS: 36415; 36416; 36430; 71045; 74177; 78452; 80048; 80053; 80061; 83036; 83690; 83735; 84484; 85025; 85610; 85730; 86850; 86900; 86901; 87040; 93005; 93010; 93017; 93306; 94760; 96365; 96375; A9500; C9113; G0378; J0153; J0171; J2185; J2270; J2704; J3010; J3490; J7050; P9016; Q9967; U0003; U0005